=== PATIENT | female | born 1970 | race Two or more races ===

== ENCOUNTER 2017-10-26 09:36 | Outpatient (CLI) | payer OTHER ==
[~2017-10-26 09:36] MED LIST: AMOX1TAB12 PO; IBUPROFEN800 MG PO
== END 2017-10-26 09:45 | disposition home or self-care (01) ==
LOC: RAD 501 09:36
DX: E66.01 Morbid (severe) obesity due to excess calories (principal); R06.02 Shortness of breath

== ENCOUNTER 2018-10-28 13:53 | Emergency (ER) | payer OTHER ==
[~2018-10-28] VITALS: Ht 160 cm; Wt 108.9 kg
[2018-10-28] MEDS ORDERED: SYNTHROID100 MCG (14:11)
[2018-10-28] MEDS ORDERED: METFORMIN HCL500 MG (14:12)
== END 2018-10-28 19:58 | disposition home or self-care (01) ==
LOC: ER 13:53
DX: J35.01 Chronic tonsillitis (principal)

== ENCOUNTER 2019-04-26 16:08 | Emergency (ER) | payer OTHER ==
[~2019-04-26] VITALS: Ht 160 cm; Wt 113.4 kg
[~2019-04-26 16:08] MED LIST changes: +METFORMIN HCL500 MG; +SYNTHROID100 MCG
[2019-04-26] MEDS ORDERED: SINGULAIR 10MG10 MG (16:39)
== END 2019-04-26 19:30 | disposition home or self-care (01) ==
LOC: ER 16:08
DX: K52.89 Other specified noninfective gastroenteritis and colitis (principal)

== ENCOUNTER 2019-06-13 14:21 | Emergency (ER) | payer OTHER ==
[~2019-06-13] VITALS: Ht 160 cm; Wt 117.9 kg
[~2019-06-13 14:21] MED LIST changes: +SINGULAIR 10MG10 MG
[2019-06-13] MEDS ORDERED: DOLOGEN CAPLET1 EACH PO (19:35)
[2019-06-13] MEDS ORDERED: XOPENEX0.63 MG/3 IH (19:35)
[2019-06-13] MEDS ORDERED: TUSNEL LIQUID178 ML PO (19:35)
[2019-06-13] MEDS ORDERED: OSEL75CA PO (19:35)
== END 2019-06-13 20:26 | disposition home or self-care (01) ==
LOC: ER 14:21
DX: J10.1 Influenza due to other identified influenza virus with other respiratory manifestations (principal); J06.9 Acute upper respiratory infection, unspecified

== ENCOUNTER 2020-09-07 22:16 | Emergency (ER) | payer OTHER ==
[~2020-09-07] VITALS: Ht 160 cm; Wt 126.1 kg
[~2020-09-07 22:16] MED LIST changes: +DOLOGEN CAPLET1 EACH PO; +OSEL75CA PO; +TUSNEL LIQUID178 ML PO; +XOPENEX0.63 MG/3 IH
[2020-09-07] MEDS ORDERED: ATIVAN0.5 M1 (23:05)
[2020-09-07] MEDS ORDERED: WELLBUTRIN SR150 MG (23:05)
[2020-09-07] MEDS ORDERED: TRAZODONE HCL50 MG (23:05)
[2020-09-07] MEDS ORDERED: APRESOLINE 10MG10 MG (23:06)
[2020-09-07] MEDS ORDERED: ACID REDUCER20 M1 (23:06)
== END 2020-09-08 04:24 | disposition home or self-care (01) ==
LOC: ER 22:16
DX: N39.0 Urinary tract infection, site not specified (principal); R10.32 Left lower quadrant pain; R19.7 Diarrhea, unspecified

== ENCOUNTER → 2021-03-22 | Outpatient (CLI) | payer OTHER ==
[~2021-03-22] MED LIST changes: +ACID REDUCER20 M1; +APRESOLINE 10MG10 MG; +ATIVAN0.5 M1; +TRAZODONE HCL50 MG; +WELLBUTRIN SR150 MG
== END | disposition home or self-care (01) ==
LOC: RAD 12:56
DX: I10 Essential (primary) hypertension (principal); J20.8 Acute bronchitis due to other specified organisms

== ENCOUNTER 2022-01-20 16:27 | Emergency (ER) | payer OTHER ==
[~2022-01-20] VITALS: Ht 160 cm; Wt 127.0 kg
[2022-01-20] MEDS ORDERED: ATORVASTATIN CA10 MG PO (18:12)
== END 2022-01-20 23:40 | disposition home or self-care (01) ==
LOC: ER 16:27
DX: R06.02 Shortness of breath (principal); Z91.011 Allergy to milk products; Z88.2 Allergy status to sulfonamides; Z88.8 Allergy status to other drugs, medicaments and biological substances; I10 Essential (primary) hypertension; J98.9 Respiratory disorder, unspecified; Z20.822 Contact with and (suspected) exposure to COVID-19

== ENCOUNTER 2022-04-15 15:02 | Emergency (ER) | payer OTHER ==
[~2022-04-15] VITALS: Ht 160 cm; Wt 127.0 kg
[~2022-04-15 15:02] MED LIST changes: +ATORVASTATIN CA10 MG PO
[2022-04-15] MEDS ORDERED: SINUS RINSE ST1 EACH NASAL (18:43)
[2022-04-15] MEDS ORDERED: FLONASE ALLERG9.9 ML NASAL (18:43)
[2022-04-15] MEDS ORDERED: ZYRTEC10 M3 PO (18:43)
== END 2022-04-15 19:32 | disposition home or self-care (01) ==
LOC: ER 15:02
DX: U07.1 COVID-19 (principal); Z91.011 Allergy to milk products; Z88.8 Allergy status to other drugs, medicaments and biological substances; Z91.018 Allergy to other foods

== ENCOUNTER 2023-03-09 14:44 | Outpatient (CLI) | payer OTHER ==
[~2023-03-09 14:44] MED LIST changes: +FLONASE ALLERG9.9 ML NASAL; +SINUS RINSE ST1 EACH NASAL; +ZYRTEC10 M3 PO
== END 2023-03-09 14:52 | disposition home or self-care (01) ==
LOC: RAD 14:44
PROVIDERS: ATTEND Internal Medicine Pulmonary Disease
DX: R05.3 Chronic cough (principal); Z16.13 Resistance to carbapenem; Z88.1 Allergy status to other antibiotic agents; Z91.011 Allergy to milk products; Z91.018 Allergy to other foods

== ENCOUNTER 2024-02-21 12:16 | Emergency (ER) | payer OTHER ==
[~2024-02-21] VITALS: Ht 160 cm; Wt 65.8 kg
[2024-02-21 13:15] VITALS: BP 110/69; O2SAT 95
[2024-02-21] MEDS ORDERED: MECLIZINE HCL 25 MG TABLET PO ONE (14:00)
[2024-02-21 14:44] LABS: HEMATOCRIT 41.5 % (36.0-45.00); HEMOGLOBIN 13.8 g/dL (12.0-15.00); MEAN CELL VOLUME 89.9 fL (80.00-100.00); MEAN CORPUSCULAR HEMOGLOBIN 29.8 pg (27.00-32.0); MEAN CORPUSCULAR HGB CONC 33.1 g/dl (32.0-36.0); PLATELET COUNT 290 K/uL (150-450); RED BLOOD COUNT 4.62 M/uL (4.00-6.00); RED CELL DISTRIBUTION WIDTH 17.7 % (11.5-14.5)
[2024-02-21 15:22] LABS: ALBUMIN 3.4 gm/dL (3.4-5.0); BILIRUBIN TOTAL 0.5 mg/dL (0.3-1.2); CALCIUM 9.6 mg/dL (8.5-10.1); CREATININE SERUM 0.59 mg/dL (0.55-1.02); GFR 106.22; GLOBULINA 3.7 G/DL (2.4-3.5); POTASSIUM 4.47 mEq/L (3.5-5.1); TOTAL PROTEIN 7.1 gm/dL (6.4-8.2)
[2024-02-21] MEDS ORDERED: DRAMAMINE LESS25 MG PO (15:33)
== END 2024-02-21 15:37 | disposition home or self-care (01) ==
LOC: ER 12:18
PROVIDERS: General Practice
DX: R42 Dizziness and giddiness (principal); I10 Essential (primary) hypertension; Z87.09 Personal history of other diseases of the respiratory system; Z91.011 Allergy to milk products; Z88.8 Allergy status to other drugs, medicaments and biological substances; Z91.018 Allergy to other foods